=== PATIENT | male | born 1965 | race Caucasian/White ===

== ENCOUNTER 2017-03-14 12:11 | Emergency (ER) | payer MEDICARE, MEDICAID ==
--- NOTE | 2017-03-20 01:25 | ER ---
ADMIT: 03/14/2017 RM/LOC: ER [facility] MR#: [id number] [address] [id number] [address]LA [address] [place] [address] Emergency Room Report SEX: M AGE: 51 : 1965 DATE: 03/14/2017 CHIEF COMPLAINT: Right elbow pain. HISTORY OF PRESENT ILLNESS: This is a 51-year-old male, who about a week ago started having a red swollen elbow that extended into his forearm, is progressively worsening. He did try to get an appointment with Family Practice today. They were unable to get him in, so he came into the emergency room. He does have an appointment on Tuesday with Dr. Morales. OVERALL FINDINGS: After sepsis, labs were done. CBC is normal. Sedimentation rate 51. Procalcitonin and lactic acid are normal. CRP elevated at 5.81. Cardiac enzymes are normal. CMP normal except for glucose of 262. Albumin is low at 3.2, alkaline phos 146. PT and INR are normal. EKG shows sinus rhythm at a rate of 96. I did have Dr. Bermudez also evaluate the patient. At this time, we think it is more cellulitis versus septic joint. I am sending him home on Keflex and Bactrim for 7 days. Having him follow up Dr. Morales on Tuesday as planned. Otherwise, told him to return to the ER if he develops fever or the redness is worsening. IMPRESSION: 1. Cellulitis to the right elbow and forearm. 2. Diabetes with hyperglycemia. LAZ Marte / Doug Bermudez MD / modl JOB #: [id number] CC: Alberto Antoine MD, Attending Physician Kevin Rey, Family Physician
== END 2017-03-14 15:26 | disposition home or self-care (01) ==
LOC: ER 12:11
DX: L03.113 Cellulitis of right upper limb (principal); E11.65 Type 2 diabetes mellitus with hyperglycemia; I10 Essential (primary) hypertension; Z79.4 Long term (current) use of insulin; Z79.899 Other long term (current) drug therapy